=== PATIENT | male | born 1995 | race Two or more races ===

== ENCOUNTER 2023-08-07 18:24 | Emergency (ER) | payer OTHER ==
[~2023-08-07] VITALS: Ht 167.6 cm; Wt 65.1 kg
[2023-08-07 18:24] VITALS: TEMP 98.9
[2023-08-07] MEDS: PERCOCET 5MG/325MG TAB PO ONE (19:38)
[2023-08-07 20:09] VITALS: O2SAT 98
[2023-08-07 20:15] VITALS: BP 122/69
== END 2023-08-07 20:24 | disposition home or self-care (01) ==
LOC: M ED 18:24
DX: S93.402A Sprain of unspecified ligament of left ankle, initial encounter (principal); V86.56XA Driver of dirt bike or motor/cross bike injured in nontraffic accident, initial encounter; Y92.9 Unspecified place or not applicable; Y93.9 Activity, unspecified; Y99.9 Unspecified external cause status

== ENCOUNTER 2023-08-27 16:45 | Emergency (ER) | payer OTHER ==
[~2023-08-27] VITALS: Ht 167.6 cm; Wt 68.3 kg
[2023-08-27 16:46] VITALS: BP 128/72; TEMP 98.3; O2SAT 98
== END 2023-08-27 18:55 | disposition left against medical advice (07) ==
LOC: M ED 16:45
DX: Z53.21 Procedure and treatment not carried out due to patient leaving prior to being seen by health care provider (principal)